=== PATIENT | male | born 1995 | race Caucasian/White ===

== ENCOUNTER 2021-01-10 10:24 | Emergency (ER) | payer SELFPAY ==
[~2021-01-10] VITALS: Ht 185.4 cm; Wt 93.0 kg
[2021-01-10 10:43] VITALS: BP 130/71
[2021-01-10] MEDS ORDERED: LIDOCAINE HCL 1% 20ML VIAL (Pyxis) INJ INFIL ONE (13:30)
[2021-01-10] MEDS ORDERED: BACITRACIN ZINC OINT UDPKT TOP ONE (14:45)
== END 2021-01-10 14:59 | disposition home or self-care (01) ==
LOC: ER 10:24
DX: S01.511A Laceration without foreign body of lip, initial encounter (principal); V43.52XA Car driver injured in collision with other type car in traffic accident, initial encounter; Y08.89XA Assault by other specified means, initial encounter; Y93.89 Activity, other specified; Y92.488 Other paved roadways as the place of occurrence of the external cause
CPT/HCPCS: 12011; 99282; J3490; Z7610